=== PATIENT | male | born 2000 ===

== ENCOUNTER 2021-10-28 18:13 | Emergency (ER) | payer OTHER ==
[~2021-10-28] VITALS: Ht 165.1 cm; Wt 72.7 kg
[2021-10-28] MEDS ORDERED: CEPHALEXIN500 M1 PO (21:03)
[2021-10-28 21:29] VITALS: BP 141/95; PULSE 92; TEMP 97.9
== END 2021-10-28 21:29 | disposition home or self-care (01) ==
LOC: COL.ER 18:13
DX: S61.213A Laceration without foreign body of left middle finger without damage to nail, initial encounter (principal); Z28.310 Unvaccinated for COVID-19; W29.0XXA Contact with powered kitchen appliance, initial encounter